=== PATIENT | female | born 1975 | race Two or more races ===

== ENCOUNTER 2024-07-14 12:17 | Emergency (ER) | payer MEDICAID, SELFPAY ==
[2024-07-14 12:35] VITALS: BP 132/86; PULSE 98; RESP 16; TEMP 36.8; O2SAT 99; BMI 34.5
--- NOTE | 2024-07-14 12:43 | EDNOTE_ITS ---
ED Abdominal Pain RME/HPI General Chief Complaint: Abdominal Pain Stated complaint: RIGHT SIDED ABD PAIN Time seen by provider: 07/14/24 12:19 Arrival date/time: 07/14/24 12:17 This is a 48-year-old female significant past medical history of diabetes, hypertension, cholecystitis. presents to the emergency department with complaints of right sided abdominal pain x 1 day. Associated nausea no emesis. Reports no fever. Patient did not attempt any interventions or take any OTC medications prior to ED visit. Patient denies any other associated symptoms or aggravating factors. No modifying factors, no radiation, no migration. Source: patient Limitations: no limitations Related Data Home Medications ?Medication ?Instructions ?Recorded ?Confirmed sitagliptin phosphate 100 mg 50 mg PO QDAY 04/05/21 03/22/24 tablet (Januvia) insulin lispro 100 unit/mL subcut 08/06/21 03/22/24 subcutaneous pen cetirizine 10 mg tablet 10 mg PO DAILY 02/27/24 03/22/24 empagliflozin 25 mg tablet 25 mg PO DAILY 02/27/24 03/22/24 (Jardiance) lisinopril 20 mg tablet 20 mg PO DAILY 02/27/24 03/22/24 tirzepatide 5 mg/0.5 mL 5 mg subcut QWEEK 02/27/24 03/22/24 subcutaneous pen injector (Maria De Jesus) Previous Rx's ?Medication ?Instructions ?Recorded diphenhydramine HCl 25 mg capsule 25 mg PO TID PRN allergic symptoms 01/30/23 (Benadryl) #20 caps meloxicam 7.5 mg tablet 7.5 mg PO QDAY #10 tabs 02/11/23 ondansetron HCl 4 mg tablet 4 mg PO Q8H #14 tabs 02/11/23 insulin degludec 100 unit/mL (3 20 unit (0.2 mL) subcut QPM #15 mL 02/28/24 mL) subcutaneous pen (Tresiba FlexTouch U-100 insulin) meloxicam 15 mg tablet 15 mg PO QDAY #20 tabs 02/28/24 pen needle, diabetic 29 gauge x #100 ea 02/28/24 1/2 (Comfort EZ Pen [place]) oxycodone-acetaminophen 5 mg-325 1 tab PO Q6H PRN pain #10 tabs 03/08/24 mg tablet (Percocet) nitrofurantoin 100 mg PO Q12H 5 days #10 caps 07/14/24 monohydrate/macrocrystals 100 mg capsule (Macrobid) omeprazole 40 mg capsule,delayed 40 mg PO QDAY #30 caps 07/14/24 release Allergies Allergy/AdvReac Type Severity Reaction Status Date / Time No Known Allergies Allergy Verified 03/22/24 10:26 Review of Systems Review of Systems Systems Reviewed: All systems reviewed, normal except as documented Narrative Review of Systems: Gen: No fever, no chills, no weight loss EYES: No discharge, no visual changes, no pain HEENT: No ear pain, no congestion, no sore throat PULM: No shortness of breath, no cough, no congestion CV: No chest pain, no dyspnea on exertion, no palpitations GI: +nausea, no vomiting, no diarrhea, right-sided abdominal pain, no constipation : No frequency, no urgency,? no dysuria Musc/skel: No joint pain, no back pain Skin: No rash? Past Medical History Past Medical History NEUROLOGIC: Negative Seizures CARDIAC: Positive Hypertension; Negative Cardiac Disorders or Congestive Heart Failure RESPIRATORY: Negative Chronic Obstructive Pulmonary Disease (COPD) or Asthma GENITOURINARY: Negative Renal Disease ENDOCRINE: Negative Diabetes Mellitus Type 1 or Diabetes Mellitus Type 2 HEMATOLOGIC: Negative Sickle Cell Disease OTHER HISTORY: Positive Blood Transfusions; Negative Blood Transfusion Reaction or Anesthesia Reactions Surgical History SURGICAL: Positive Open Reduction Internal Fixation, Lumpectomy and Section Social History SMOKING STATUS: Light (< 1 pack/day) SECOND HAND EXPOSURE: No SUBSTANCE USE: does not use ED Exam General Limitations: Present no limitations General appearance: Present alert and in no apparent distress Head Head exam: Present atraumatic Eye Eye exam: Present normal appearance, PERRL and EOMI ENT ENT exam: Present normal exam, normal oropharynx and mucous membranes moist Neck Neck exam: Present normal inspection, full ROM and trachea midline Chest Chest inspection: Present normal inspection and symmetric chest wall rise Respiratory Respiratory exam: Present normal lung sounds bilaterally Cardiovascular Cardiovascular exam: Present regular rate, normal rhythm, normal heart sounds, +S1 and +S2 Abdominal Exam Abdominal exam: Present soft, tenderness and normal bowel sounds; Absent distention Abdominal tenderness: Present RUQ, RLQ and mild Extremities Exam Extremities exam: Present normal inspection and full ROM Back Exam Back exam: Present normal inspection and full ROM Neurological Exam Neurological exam: Present alert, oriented X3 and CN II-XII intact Psychiatric Psychiatric exam: Present normal affect and normal mood Skin Skin exam: Present warm, dry, intact and normal color Course Quality Measures none Orders Category Date Time Status CT Screening NOW Care 07/14/24 12:[address] abdomen pelvis w con Stat Exams 07/14/24 12:41 Completed US pelvic complete Stat Exams 07/14/24 15:35 Completed CBC Stat Lab 07/14/24 13:03 Completed Comprehensive Metabolic Panel Stat Lab 07/14/24 13:03 Completed HCG Qualitative,Urine Stat Lab 07/14/24 13:23 Completed Lipase Stat Lab 07/14/24 13:03 Completed Urinalysis Stat Lab 07/14/24 13:23 Completed Lidocaine 2% Viscous [Xylocaine 2% Viscous] Med 07/14/24 15:35 Discontinued 15 ml PO X1 ONE mg Hyd/Al Hyd/Junior Susp [Maalox Susp] Med 07/14/24 15:35 Discontinued 30 ml PO X1 ONE Vital Signs Vital signs: Vital Signs Temperature 98.3 F 07/14/24 12:35 Pulse Rate 98 07/14/24 12:35 Respiratory Rate 16 07/14/24 12:35 Blood Pressure 132/86 H 07/14/24 12:35 Pulse Oximetry (%) 99 07/14/24 12:35 Oxygen Delivery Method Room Air 07/14/24 12:35 Abdominal Pain MDM MDM Narrative MDM Narrative:: DX UTI, GASTRITS, and UTerine Fibroids Patient data External records reviewed:: [facility] previous records Clinical information provided by:: patient Social determinants that could affect healthcare access:: none Patient has the following chronic illnesses:: Diabetes, hypertension How is presenting disease/condition affected by chronic disease/condition?: uneffected by Evaluation data The following diagnostics were reviewed and interpreted by me:: lab results and radiology exam(s) Lab and/or radiology exams considered but not ordered:: yes Interpretation Summary: Examination: CT abdomen with intravenous contrast CT pelvis with intravenous contrast 2-D coronal reconstructions 2-D sagittal reconstructions Date and time of exam:July 14, 2024 1455 hours Comparison February 27, 2024: Right-sided abdominal pain today. CTDI: vol (mGy) 11.1 DLP: (mGycm) 661 Technique: Multiple axial sections of the abdomen and pelvis have been obtained. 64 slice high-resolution scanner used. 3 mm axial sections have been obtained, post intravenous injection 60 cc [id number]-[id number] 2-D sagittal, coronal reconstructions obtained. Low dose protocols were performed. One or more of the following dose reduction techniques were used; automated exposure control, adjustment of the mA and/or KV according to patient size, use of iterative reconstruction technique. Findings: No focal liver or splenic lesions Absent gallbladder Mucosal edema in the stomach No pancreatic or adrenal mass No renal or ureteral calculi, no hydronephrosis Aorta normal size No pericecal inflammatory change No diverticulitis Enlarged fundus of uterus with enhancing uterine fundal mass at least 6 cm 24 mm left adnexal cyst Urinary bladder intact Mild osteopenia IMPRESSION: Gastritis pattern No CT findings of bowel obstruction appendicitis or diverticulitis Large enhancing mass uterine fundus, recommend pelvic sonography follow-up Examination: Pelvic ultrasound, transabdominal, complete Technique: Transabdominal ultrasound of the pelvis performed using grayscale imaging Date and time of exam: July 14, 2024 1717 hours INDICATIONS: Onset pelvic pain today FINDINGS: Uterus 13.4 x 6.7 x 8.5 cm Left lateral uterine fundal area of fibroid degeneration 6.3 x 3.8 x 5.0 cm Endometrial stripe 14 mm Right ovary obscured by bowel gas Left ovary 3.0 x 1.6 x 1.5 cm arterial flow 17 mm follicular cyst IMPRESSION: Uterine fundal area of likely fibroid degeneration 6.3 x 3.8 x 5.0 cm, recommend 6 month follow-up transvaginal pelvic sonography Medications / Prescriptions Medications or Prescriptions considered but not ordered:: no Medication administrations:: Medication Administration History Discontinued Medications Al Hydrox/Mg Hydrox/Simethicone (Mg Hyd/Al Hyd/Junior (Maalox Reg) Susp 30 Ml Udc) 30 ml PO X1 ONE Stop: 07/14/24 15:36 Last Admin: 07/14/24 15:42 Dose: 30 ml Documented By: NARESH Lidocaine HCl (Lidocaine Viscous 2% 15 Ml Udc) 15 ml PO X1 ONE Stop: 07/14/24 15:36 Last Admin: 07/14/24 15:42 Dose: 15 ml Documented By: NARESH no Consultations Consultation(s) initiated? (list below): No Diagnosis Differential diagnosis abdominal pain: abdominal pain, acute appendicitis, calculus of kidney, constipation, diverticulitis and pancreatitis Most likely diagnosis given after review of the tests above:: Abdominal pain UTI Admission Indicated Admission indicated?: not indicated Admission Request Was there a request for admission?: No Disposition Plan Disposition Plan: Discharge Discharge Attestation Discharge Attestation: The patient and all family members were given an opportunity to ask questions and understood the discharge instructions. Discharge instructions specifically effects, indications for sooner follow up or return to the emergency department, and the expected course of current diagnosis. Patient condition: Stable Discharge Plan Plan Patient Disposition: HOME (Self Care) Patient condition on transfer: Stable Prescriptions/Referrals Prescriptions/Med Rec: New omeprazole 40 mg capsule,delayed release(DR/EC) 40 mg PO QDAY Qty: 30 0RF nitrofurantoin monohyd/m-cryst [Macrobid] 100 mg capsule 100 mg PO Q12H 5 Days Qty: 10 0RF Rx Instructions: must administer with a meal/food No Action insulin lispro 100 unit/mL Insulin Pen SUBCUT Januvia 100 mg Tablet 50 mg PO QDAY meloxicam 7.5 mg tablet 7.5 mg PO QDAY Qty: 10 0RF ondansetron HCl 4 mg tablet 4 mg PO Q8H Qty: 14 0RF oxycodone-acetaminophen [Percocet] 5-325 mg tablet 1 tab PO Q6H MDD 6 tabs PRN (Reason: pain) Qty: 10 0RF diphenhydramine HCl [Benadryl] 25 mg capsule 25 mg PO TID PRN (Reason: allergic symptoms) Qty: 20 0RF Mounjaro 5 mg/0.5 mL Pen Injector 5 mg SUBCUT QWEEK lisinopril 20 mg Tablet 20 mg PO DAILY cetirizine 10 mg Tablet 10 mg PO DAILY Jardiance 25 mg Tablet 25 mg PO DAILY insulin degludec [Tresiba FlexTouch U-100] 100 unit/mL (3 mL) insulin pen 20 unit subcut QPM Qty: 15 3RF (DME) pen needle, diabetic [Comfort EZ Pen [place]] 29 gauge x 1/2 needle See Rx Instructions .Route Qty: 100 3RF Rx Instructions: As directed meloxicam 15 mg tablet 15 mg PO QDAY Qty: 20 0RF Referrals: Jeferson Mckeon MD [Primary Care Provider] - In 1 week Problem List Clinical Impression: Gastritis, Fibroid, uterine, UTI (urinary tract infection) Patient/Caregiver Discharge Instructions Discharge Activity: activity as tolerated Education Materials: ED Gastritis (Adult), ED Uterine Fibroids, ED CYSTITIS Female Adult Additional Instructions: Please take antibiotics as directed. Start the antiacid medication. Follow-up with your primary doctor or clinic in 2 days. Return to the emergency department with any worsening symptoms any condition. Print Language: Irish Stand Alone Forms: Alysa Award Info., Patient Portal Info Letter PA/ZIPPER CUTTER Supervising Physician PA/BLANCA Supervising Physician: Dr. Robledo
[2024-07-14 13:14] LABS: Basophils % (Auto) 1 % (0-2.5); Eosinophils # (Auto) 0.1 Thou/mm3 (0.0-0.5); Eosinophils % (Auto) 2 % (0-10); Hematocrit 41.4 % (36.0-46.0); Hemoglobin 13.6 g/dL (12.0-16.0); Immature Granulocytes % (Auto) 0 % (0-0); Immature Granulocytes Auto 0.02 Thou/mm3 (0.00-0.00); Lymphocytes # (Auto) 2.7 Thou/mm3 (1.0-4.8); Lymphocytes % (Auto) 46 % (10-50); Mean Corpuscular HGB Conc 32.9 g/dl (31.0-37.0); Mean Corpuscular Hemoglobin 25.6 pg (25.0-35.0); Mean Corpuscular Volume 78 fL (80-100); Monocytes # (Auto) 0.5 Thou/mm3 (0.0-0.8); Monocytes % (Auto) 9 % (0-12); Neutrophils # (Auto) 2.4 Thou/mm3 (1.8-7.7); Neutrophils % (Auto) 42 % (37-80); Nucleated Red Blood Cell % 0 /100 WBC (0); Platelet Count 331 Thou/mm3 (140-440); RDW Standard Deviation 43.3 fL (36.4-46.3); Red Blood Count 5.32 Miln/mm3 (4.00-5.20); White Blood Count 5.8 Thou/mm3 (3.6-11.0)
[2024-07-14 13:39] LABS: Alanine Aminotransferase 23 U/L (10-49); Albumin, Serum 4.7 gm/dL (3.5-5.0); Albumin/Globulin Ratio 1.6 (1.2-2.2); Alkaline Phosphatase 179 U/L (46-116); Anion Gap 6 (7-16); Aspartate Amino Transferase 20 U/L (0-34); BUN/Creatinine Ratio 14 Ratio (12-20); Bilirubin,Total 0.3 mg/dL (0.3-1.2); Blood Urea Nitrogen 11 mg/dL (9-23); Calcium 9.7 mg/dL (8.3-10.6); Calcium (Corrected) 9.7 mg/dL (8.5-10.1); Carbon Dioxide 25.6 mMol/L (20.0-31.0); Chloride 105 mMol/L (98-107); Creatinine (Component) 0.8 mg/dL (0.6-1.3); Glucose 142 mg/dL (74-106); Lipase 45 U/L (12-53); Osmolality,Calculated 275 (275-295); Potassium 3.7 mMol/L (3.4-5.1); Sodium 137 mMol/L (136-145); Total Protein 7.7 gm/dL (5.7-8.2); eGFR > 60 See Note
[2024-07-14 13:40] LABS: Collection Type, Urine Clean Catch
[2024-07-14 13:47] LABS: HCG Qualitative,Urine Negative
[2024-07-14 14:01] LABS: Bacteria,Urine Rare; Bilirubin,Urine Negative (Negative); Blood,Urine Negative (Negative); Clarity,Urine Clear (Clear/Hazy); Color,Urine Lt-Yellow (Lt Yel-Yel); Glucose, Urine 4+ (Negative); Ketones,Urine Negative (Negative); Leukocyte Esterase,Urine Negative (Negative); Nitrite,Urine Negative (Negative); Protein,Urine Negative (Neg - Trace); RBC,Urine 5 /hpf (0-3); Specific Gravity,Urine 1.043 (1.001-1.035); Squamous Epithelial Cell,Urine 5 /hpf (0-5); Urobilinogen,Urine Negative mg/dL (0.0-1.0); WBC,Urine 26 /hpf (0-5)
--- NOTE | 2024-07-14 15:35 | XR_ITS ---
Examination: Pelvic ultrasound, transabdominal, complete Technique: Transabdominal ultrasound of the pelvis performed using grayscale imaging Date and time of exam: July 14, 2024 1717 hours INDICATIONS: Onset pelvic pain today FINDINGS: Uterus 13.4 x 6.7 x 8.5 cm Left lateral uterine fundal area of fibroid degeneration 6.3 x 3.8 x 5.0 cm Endometrial stripe 14 mm Right ovary obscured by bowel gas Left ovary 3.0 x 1.6 x 1.5 cm arterial flow 17 mm follicular cyst IMPRESSION: Uterine fundal area of likely fibroid degeneration 6.3 x 3.8 x 5.0 cm, recommend 6 month follow-up transvaginal pelvic sonography
[2024-07-14] MEDS: LIDOCAINE VISCOUS 2% 15 ML UDC PO (15:42)
[2024-07-14] MEDS: MG HYD/AL HYD/SIME (Maalox Reg) SUSP 30 ML UDC PO (15:42)
== END 2024-07-14 18:25 | disposition home or self-care (01) ==
PROVIDERS: Nurse Practitioner Primary Care; Emergency Provider Emergency Medicine; PCP Family Medicine
DX: K29.70 Gastritis, unspecified, without bleeding (principal); D25.9 Leiomyoma of uterus, unspecified; N39.0 Urinary tract infection, site not specified
CPT/HCPCS: 36415; 74177; 76856; 80053; 81001; 81025; 83605; 83690; 84145; 85025; 87040; 99285; A4649; J3490; Q9967; A9270

== ENCOUNTER → 2025-01-05 | Outpatient (CLI) | payer MEDICAID, SELFPAY ==
--- NOTE | 2025-01-05 14:30 | XR_ITS ---
Examination: Breast ultrasound, unilateral, right complete Date and time of exam: January 06, 2025 1407 hours INDICATIONS: Palpable lump right breast 10:00 position 8 months Technique: Real-time cespedes scale ultrasonographic imaging performed right breast including all 4 quadrants as well as nipple retroareolar and axillary region. Findings: 7:00 nodule circumscribed 8 x 7 mm 9:00 cyst 9 x 8 mm 11:00 cyst 4 x 3 mm IMPRESSION: BI-RADS Category 3: Probably benign findings One additional 6 month right breast sonogram follow-up is needed to document stability of 7:00 nodule described above
== END | disposition home or self-care (01) ==
LOC: CDIM 13:15
PROVIDERS: PCP Student in an Organized Health Care Education/Training Program; Referring Provider Student in an Organized Health Care Education/Training Program; Visit Provider Student in an Organized Health Care Education/Training Program
DX: N63.13 Unspecified lump in the right breast, lower outer quadrant (principal)
CPT/HCPCS: 76641

== ENCOUNTER → 2025-01-06 | Outpatient (CLI) | payer MEDICAID, SELFPAY ==
--- NOTE | 2025-01-06 | XR_ITS ---
Examination: Diagnostic digital mammography, bilateral Computer aided detection 3-D breast Tomosynthesis, bilateral Date and time of exam: January 06, 2025 1359 hours Compared to mammograms dating to June 22, 2021, INDICATIONS: History lump in the retroareolar region right breast Technique: Nonmagnified MLO, CC views of the breasts to been obtained, reconstructed from 3-D Tomosynthesis images. R2 computer aided detection program utilized for evaluation of suspicious masses and/or abnormal calcifications. 3-D Tomosynthesis images obtained. Findings: Scattered areas of fibroglandular density. Breast biopsy marker 12:00 position right breast Focal asymmetry outer right breast stable No interval suspicious masses Impression: BI-RADS Category 2: Benign findings Return to yearly follow-up mammography Please see the right breast sonogram report January 05, 2025 recommending six-month follow-up right breast sonography.
== END | disposition home or self-care (01) ==
LOC: CDIM 12:54
PROVIDERS: Referring Provider Student in an Organized Health Care Education/Training Program; Visit Provider Student in an Organized Health Care Education/Training Program
DX: R92.323 Mammographic fibroglandular density, bilateral breasts (principal)
CPT/HCPCS: 77062; 77066; G0279